=== PATIENT | female | born 1950 | race Caucasian/White ===

== ENCOUNTER 2019-07-27 23:01 | Emergency (ER) | payer MEDICARE ==
--- OUTSIDE RECORDS SUMMARY | 2019-07-27 23:20 | XMS REPORT | Continuity of Care Document ---
:1950 External Reference #:[id number] Author Name Shannan Terrazas M.D. 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[employer] [phone] Medicine Problems Description No Information Available Social History Type Date Description Comments Sex Unknown ETOH Use Denies alcohol use Tobacco Use Start: Unknown End: Patient is a former when she was 15 Unknown smoker Recreational Drug Use Denies Drug Use Smoking Status Reviewed: 07/08/19 Patient is a former when she was 15 smoker Exercise Type/Frequency Exercises regularly hiking, yoga, pilates Exercise Type/Frequency Exercises regularly weight training Allergies, Adverse Reactions, Alerts Description No Known Drug Allergies Medications Active Medications SIG Qnty Indications Ordering Date Provider Ibuprofen 2 tabs by mouth Unknown 200mg every 6 hours as Capsules needed My Kind Multivitamin 1 by mouth every day Unknown Adult Tablets [facility] Epa+Dha 1280 mg 2 po qd Unknown 1000mg Capsules Dhea 1 by mouth one time Unknown 10mg Capsules per day Vitamin D3 1 by mouth every day Unknown 1000Unit (not routinely in Capsules the summer months) Turmeric 3 po qd Unknown 450mg Capsules Ladan Adrenal (with holy basil, Unknown 200mg siberian rhodiola Capsules root, schisandra alcocer, ashwagandha root extract) 2 po qd Schisandra Alcocer 1 by mouth every day Unknown 580mg Capsules Valerian 125 mg prn Unknown Co Q-10 1 by mouth daily Unknown 100mg Capsules Immunizations CPT Code Status Date Vaccine Lot # [id number] Given 03/24/2018 Typhoid Vaccine [id number] Given 03/24/2018 Hepatitis A Vaccine Adult Dosage [id number] Vital Signs Date Vital Result Comment 07/08/2019 1:47pm Height 65.75 inches 5'5.75" Weight 129.12 lb with shoes Heart Rate 96 /min radial, regular BP Systolic Sitting 124 mmHg LA, reg cuff BP Diastolic Sitting 80 mmHg LA, reg cuff BP Systolic Standing 124 mmHg Ra sitting, reg cuff BP Diastolic Standing 80 mmHg Ra sitting, reg cuff BMI (Body Mass Index) 21.0 kg/m2 03/05/2019 1:15pm Height 65.75 inches 5'5.75" Weight 136.00 lb Heart Rate 80 /min BP Systolic 116 mmHg BP Diastolic 79 mmHg Body Temperature 98.3 F O2 % BldC Oximetry 98 % BMI (Body Mass Index) 22.1 kg/m2 Results Test Date Facility Test Result H/L Range Note Laboratory test 03/05/2019 [facility] Estradiol <pending> finding [address] [place] [address] [phone] Progesterone <pending> Laboratory test finding 03/05/2019 [facility] Ferritin <pending > [address] [place] [address] [phone] Procedures Date Code Description Status 07/08/2019 44184 EKG Tracing & Interpretation Completed 04/16/2017 [id number] Mammogram Completed 10/11/2016 [id number] Colonoscopy Completed Medical Devices Description No Information Available Encounters Type Date Location Provider Dx Diagnosis Office Visit 03/05/2019 [facility] Juhi Cuevas NP R53.83 Other fatigue 1:00p [facility] R45.89 Other symptoms and signs involving emotional state Assessments Date Code Description Provider 07/08/2019 R53.83 Other fatigue Shannan Terrazas M.D. 07/08/2019 R94.31 Abnormal electrocardiogram [ECG] [EKG] Shannan Terrazas M.D. 07/08/2019 I45.10 Unspecified right bundle-branch block Shannan Terrazas M.D. 03/05/2019 R53.83 Other fatigue Juhi Cuevas NP 03/05/2019 R45.89 Other symptoms and signs involving Juhi Cuevas NP emotional state Plan of Treatment Future Appointment(s):08/04/2019 2:00 pm - Shannan Terrazas M.D. at [facility]07/28/2019 10:00 am - [place] [facility] Schedule at [facility]07/28/2019 10:30 am - Shannan Terrazas M.D. at [facility]07/21/2019 1:30 pm - Nurse Visit cc at [facility]07/20/2019 3 :00 pm - Nurse Visit cc at [facility]07/21/2019 2:15 pm - [place] [facility] Schedule at [facility]07/08/2019 - Shannan Terrazas M.D.R53.83 Other dpiwlnpL42.31 Abnormal electrocardiogram [ECG] [EKG]New Orders:24 hour holter monitor, Scheduled: 07/20/19Echocardiogram, Scheduled: 07/21/19Stress Test, Exercise Echocardiogram, Scheduled: 07/28/19Follow up:4-8 wks ovI45.10 Unspecified right bundle-branch block Functional Status Description No Information Available Mental Status Description No Information Available Referrals Description No Information Available
--- NOTE | 2019-07-28 02:31 | ED ---
HPI Chest Pain - HPI Summary HPI Summary: Patient is a 69 y/o F presenting to [facility] with complaints of intermittent, upper chest pressure. She states that she felt "weird" today. Patient states that she had been evaluated for an arrhythmia by her PCP and is currently being followed by Dr. Terrazas for this. She notes that she had a Holter monitor test some time ago and has not heard about any concerning results. Patient reports some indigestion as well. Sx have resolved at present. RIVERA is denied. She states that she has been under some added stress recently. On triage, pain is denied. Home medications and allergies are reviewed. - History of Current Complaint Chief Complaint: EDHypertension Time Seen by Provider: 07/28/19 02:12 Hx Obtained From: Patient Onset/Duration: Resolved Timing: Intermittent Current Severity: None Pain Intensity: 0 Chest Pain Location: Upper Sternal Character: Pressure/Squeezing Associated Signs and Symptoms: Positive: Chest Pain, Other: - positive - indigestion. Negative: Headaches - Allergy/Home Medications Allergies/Adverse Reactions: Allergies Allergy/AdvReac Type Severity Reaction Status Date / Time No Known Allergies Allergy Verified 07/28/19 02:43 PMH/Surg Hx/FS Hx/Imm Hx Sensory History: Denies: Hx Legally Blind, Hx Deafness Opthamlomology History: Denies: Hx Legally Blind EENT History: Denies: Hx Deafness - Cancer History Hx Chemotherapy: No Hx Radiation Therapy: No Infectious Disease History: No Infectious Disease History: Denies: Traveled Outside the [place] in Last 30 Days - Family History Known Family History: Negative: Hypertension - Social History Alcohol Use: None Substance Use Type: Reports: None Smoking Status (MU): Never Smoked Tobacco Review of Systems Positive: Chest Pain Gastrointestinal: Other - positive - indigestion Negative: Headache All Other Systems Reviewed And Are Negative: Yes Physical Exam - Summary Physical Exam Summary: Appearance: Well-appearing, Well-nourished, lying in bed comfortably Skin: Warm, dry, no obvious rash Eyes: sclera anicteric, no conjunctival pallor ENT: mucous membranes moist, pharynx appears normal Neck: Supple, nontender Respiratory: Clear to auscultation, no signs of respiratory distress Cardiovascular: Normal S1, S2. No murmurs. Normal distal pulses in tibial and radial bilaterally. Abdomen: Soft, nontender, normal active bowel sounds present Musculoskeletal: Normal, Strength/ROM Intact Neurological: A&Ox3, awake and alert, mentation is normal, speech is fluent and appropriate Psychiatric: affect is normal, does not appear anxious or depressed Triage Information Reviewed: Yes Vital Signs On Initial Exam: Initial Vitals Temp Pulse Resp BP Pulse Ox 98.2 F 118 20 161/104 98 07/27/19 23:09 07/27/19 23:09 07/27/19 23:09 07/27/19 23:09 07/27/19 23:09 Vital Signs Reviewed: Yes Diagnostics - Vital Signs Vital Signs Temp Pulse Resp BP Pulse Ox 07/27/19 23:09 98.2 F 118 20 161/104 98 - Laboratory Result Diagrams: 07/28/19 02:35 07/28/19 02:35 Lab Statement: Any lab studies that have been ordered have been reviewed, and results considered in the medical decision making process. - EKG 2304 Cardiac Rate: Tachycardia - RATE OF 105 BPM EKG Rhythm: Sinus Tachycardia Summary of EKG Findings: Sinus tachycardia with rate of 105 BPM, P waves, QRS complex, and T waves are within normal limits, T waves and intervals are normal , no ischemic changes. This is a normal EKG. Chest Pain Course/Dx - Course Course Of Treatment: Patient is a 69 y/o F presenting to [facility] with complaints of intermittent, upper chest pressure. She states that she felt "weird" today. Patient states that she had been evaluated for an arrhythmia by her PCP and is currently being followed by Dr. Terrazas for this. She notes that she had a Holter monitor test some time ago and has not heard about any concerning results. Patient reports some indigestion as well. Sx have resolved at present. RIVERA is denied. She states that she has been under some added stress recently. Physical exam is unremarkable. Sinus tachycardia with rate of 105 BPM, P waves, QRS complex, and T waves are within normal limits, T waves and intervals are normal, no ischemic changes. This is a normal EKG. Bloodwork was obtained. Glucose was 118. Trop negative. D-dimer negative. Patient was discharged to home. 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 - Diagnoses Provider Diagnoses: Chest pain Discharge ED - Sign-Out/Discharge Documenting (check all that apply): Patient Departure - discharge Patient Received Moderate/Deep Sedation with Procedure: No - Discharge Plan Condition: Good Disposition: HOME Patient Education Materials: Chest Pain (ED) Referrals: Sunshine Ortiz MD [Primary Care Provider] - Additional Instructions: Your BP has been running high here tonight but is not causing any symptoms and does not require any acute treatment. Usually this type of elevation settles down on its own, so I would not recommend any changes in your medications, just continue with the evaluation from your retarder operator as you have been doing. The blood work and EKG did not show any sign of an acute heart problem. - Billing Disposition and Condition Condition: GOOD Disposition: Home - Attestation Statements Document Initiated by Elza: Yes Documenting Scribe: MACIE PEREZ Provider For Whom Elza is Documenting (Include Credential): SHAHANA BURNETT MD Scribe Attestation: MACIE Haines, scribed for SHAHANA BURNETT MD on 08/01/19 at 0627. Scribe Documentation Reviewed: Yes Provider Attestation: The documentation as recorded by the MACIE frost accurately reflects the service I personally performed and the decisions made by me, SHAHANA BURNETT MD Status of Scribe Document: Viewed
[2019-07-28 02:46] LABS: ABS Lymphocytes 1.9 10^3/ul (1.0-4.8); ABS Monocytes 0.3 10^3/ul (0-0.8); ABS Neutrophils 3.9 10^3/ul (1.5-7.7); Eosinophil % 0.3 %; Hematocrit 42 % (35-47); Hemoglobin 14.4 g/dL (12.0-16.0); Lymphocyte % 31.3 %; Mean Corpuscular HGB Conc 34 g/dL (31-36); Mean Corpuscular Hemoglobin 30 pg (27-31); Mean Corpuscular Volume 89 fL (80-97); Mean Platelet Volume 10.4 fL (7.4-10.4); Platelet Count 163 10^3/uL (150-450); Red Blood Count 4.79 10^6 /uL (3.70-4.87); Red Cell Distribution Width 14 % (10-15); White Blood Count 6.1 10^3/uL (3.5-10.8)
[2019-07-28 03:17] LABS: Albumin 4.2 g/dL (3.2-5.2); Albumin/Globulin Ratio 1.6 (1-3); BUN/Creatinine Ratio 17.4 (8-20); Calcium 9.5 mg/dL (8.6-10.3); EGFR African American 101.8 (>60); EGFR Non-African American 84.1 (>60); Globulin 2.6 g/dL (2-4); Potassium 4.2 mmol/L (3.5-5.0); Total Bilirubin 0.8 mg/dL (0.2-1.0); Total Protein 6.8 g/dL (6.4-8.9)
[2019-07-28 03:19] LABS: Troponin I 0.01 ng/mL (<0.04)
[2019-07-28 03:59] VITALS: BP 165/100
== END 2019-07-28 03:58 | disposition home or self-care (01) ==
LOC: ED 23:01
DX: R07.9 Chest pain, unspecified (principal); R00.0 Tachycardia, unspecified; R94.31 Abnormal electrocardiogram [ECG] [EKG]
CPT/HCPCS: 36415; 80053; 84484; 85025; 85379; 93005; 99282